=== PATIENT | male | born 2000 | race Caucasian/White ===

== ENCOUNTER 2023-06-20 11:35 | Emergency (ER) | payer OTHER, SELFPAY ==
[2023-06-20 11:43] VITALS: BP 109/83; PULSE 85; RESP 18; TEMP 36.7; O2SAT 98; BMI 26.6
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
[2023-06-20] MEDS: ACETAMINOPHEN 325 MG TABLET 650 MG PO (12:16)
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
== END 2023-06-20 15:14 | disposition home or self-care (01) ==
PROVIDERS: Emergency Provider Emergency Medicine
DX: S09.8XXA Other specified injuries of head, initial encounter (principal); S00.83XA Contusion of other part of head, initial encounter; Y04.2XXA Assault by strike against or bumped into by another person, initial encounter; F07.81 Postconcussional syndrome
CPT/HCPCS: 70450; 70480; 99283